=== PATIENT | female | born 1985 | race African-American/Black ===

== ENCOUNTER 2016-09-24 17:57 | Emergency (ER) | payer MEDICAID, OTHER ==
[~2016-09-24] VITALS: Ht 162.6 cm; Wt 87.5 kg
[2016-09-24 19:56] LABS: Basophils # (auto) 0 uL; Basophils % (auto) 0.5 % (0.0-2.0); DEFINITIVE VIEW TRANSMISSION; Eosinophils # (auto) 0.1 uL; Eosinophils % (auto) 0.9 % (0.0-7.0); Hematocrit 36.7 % (36.0-46.0); Hemoglobin 11.6 g/dL (12.2-16.2); Lymphocytes # (auto) 3.5 uL; Lymphocytes % (auto) 36.2 % (10.0-50.0); Mean Corpuscular Hemoglobin 23.1 pg (28.0-32.0); Mean Corpuscular Hgb Conc. 31.5 g/dL (32.0-36.0); Mean Corpuscular Volume 73.4 fL (80.0-100.0); Monocytes % (auto) 10.3 % (0.0-12.0); Neutrophils # (auto) 5.1 uL; Neutrophils % (auto) 52.1 % (37.0-80.0); Platelet Count (auto) 349 10^3/uL (140-450); Red Cell Distribution Width 16.3 % (11.6-16.0); White Blood Cell 9.7 10^3/uL (4.4-10.8)
[2016-09-24 19:59] LABS: Albumin 3.8 g/dL (3.4-5.0); BUN/Creatinine Ratio 13.6; Bilirubin, Total 0.6 mg/dL (0.2-1.0); Calcium 9.2 mg/dL (8.5-10.1); Potassium 3.8 mmol/L (3.5-5.1); Total Protein 7.7 g/dL (6.4-8.2)
[2016-09-24 20:41] LABS: Hypochromia Moderate; Platelet Estimate Adequate
[2016-09-25] MEDS ORDERED: ONDANSETRON ODT 4 MG TAB PO ONE (00:30)
[2016-09-25] MEDS ORDERED: NALBUPHINE HCL 10 MG/1ml INJECTION IM ONE (00:30)
[2016-09-25 02:15] VITALS: BP 137/83
[2016-09-25 02:44] LABS: Urine Bilirubin Negative (Negative); Urine Color Colorless (Yellow); Urine Glucose Normal (Normal); Urine Nitrite Negative (Negative); Urine RBC 2 /hpf (0 - 4); Urine Squamous Epithelial Cell FEW /hpf (<5); Urine Urobilinogen Normal (Negative)
[2016-09-25 02:48] LABS: Urine Blood 2+ /uL (Negative); Urine Ketone 1+ (Negative)
[2016-09-25] MEDS ORDERED: KETOROLAC TROMETH 60MG/2ML VIAL IM ONE (03:15)
[2016-09-25] MEDS ORDERED: NITROFURANTOIN (MONO) 100 mg CAP PO ONE (03:15)
== END 2016-09-25 03:48 | disposition home or self-care (01) ==
LOC: ER 18:03
DX: R51 Headache (principal); N39.0 Urinary tract infection, site not specified; E07.9 Disorder of thyroid, unspecified
CPT/HCPCS: 36415; 70450; 71020; 80053; 81001; 81025; 85025; 85049; 93005; 96372; 99285; J2300; Q0162; J1885

== ENCOUNTER 2018-10-31 19:10 | Emergency (ER) | payer MEDICAID ==
[~2018-10-31] VITALS: Ht 149.9 cm; Wt 59.0 kg
[2018-10-31 20:15] LABS: Basophils # (auto) 0.1 uL; Eosinophils # (auto) 0.1 uL; Neutrophils # (auto) 6.2 uL; White Blood Cell 9.6 10^3/uL (4.4-10.8)
[2018-10-31 20:17] LABS: Basophils % (auto) 1.1 % (0.0-2.0); Eosinophils % (auto) 0.9 % (0.0-7.0); Hematocrit 33.9 % (36.0-46.0); Hemoglobin 10.5 g/dL (12.2-16.2); Lymphocytes # (auto) 2.4 uL; Lymphocytes % (auto) 25.1 % (10.0-50.0); Mean Corpuscular Hemoglobin 20.2 pg (28.0-32.0); Mean Corpuscular Volume 65.4 fL (80.0-100.0); Monocytes # (auto) 0.8 uL; Monocytes % (auto) 7.9 % (0.0-12.0); Nucleated Red Blood Cells % 0.1 %; Platelet Count (auto) 316 10^3/uL (140-450); Red Blood Cells 5.19 10^6/uL (4.0-5.20)
[2018-10-31 20:19] LABS: Red Cell Distribution Width 20.6 % (11.8-14.3)
[2018-10-31 20:25] LABS: Alanine Aminotransferase 16 U/L (13-56); Albumin 3.7 g/dL (3.4-5.0); Anion Gap 7 (5-15); Blood Urea Nitrogen 12 mg/dL (7-18); Calcium 8.3 mg/dL (8.5-10.1); Carbon Dioxide 25 mmol/L (21-32); Chloride 108 mmol/L (98-107); Glucose 91 mg/dL (74-106); Potassium 3.3 mmol/L (3.5-5.1); Sodium 140 mmol/L (136-145)
[2018-10-31 20:30] LABS: Alkaline Phosphatase 68 U/L (45-117); Aspartate Aminotransferase 14 U/L (15-37); BUN/Creatinine Ratio 17.9; Bilirubin, Total 0.3 mg/dL (0.2-1.0); GFR African American 132 mL/min; GFR Non-African American 109 mL/min; Total Protein 7.5 g/dL (6.4-8.2)
[2018-10-31 21:13] LABS: Urine Bacteria FEW /hpf (None Seen); Urine Blood Negative /uL (Negative); Urine Mucus FEW (None Seen); Urine Specific Gravity 1.025 (1.001-1.035); Urine WBC 7 /hpf (0 - 5)
[2018-11-01 00:53] VITALS: BP 123/65
== END 2018-11-01 00:59 | disposition home or self-care (01) ==
LOC: ER 19:18
DX: S43.402A Unspecified sprain of left shoulder joint, initial encounter (principal); S20.212A Contusion of left front wall of thorax, initial encounter; R51 Headache; V49.9XXA Car occupant (driver) (passenger) injured in unspecified traffic accident, initial encounter; Y93.I9 Activity, other involving external motion; Y92.488 Other paved roadways as the place of occurrence of the external cause; Y99.8 Other external cause status
CPT/HCPCS: 36415; 71045; 80053; 81001; 81025; 84484; 85025

== ENCOUNTER 2019-12-08 06:59 | Emergency (ER) | payer MEDICAID ==
[~2019-12-08] VITALS: Ht 162.6 cm; Wt 92.1 kg
[2019-12-08 07:47] LABS: Eosinophils # (auto) 0 10 ^3/uL (0-0.8); Lymphocytes % (auto) 33.7 % (10.0-50.0); Mean Corpuscular Hgb Conc. 31.6 g/dL (32.0-36.0); Monocytes # (auto) 1.1 10 ^3/uL (0-1.3)
[2019-12-08 07:49] LABS: Basophils # (auto) 0.1 10 ^3/uL (0-0.2); Basophils % (auto) 0.5 % (0.0-2.0); Eosinophils % (auto) 0.2 % (0.0-7.0); Hematocrit 36.3 % (36.0-46.0); Hemoglobin 11.5 g/dL (12.2-16.2); Lymphocytes # (auto) 3.7 10 ^3/uL (0.4-5.4); Mean Corpuscular Hemoglobin 23.7 pg (28.0-32.0); Mean Corpuscular Volume 74.9 fL (80.0-100.0); Neutrophils # (auto) 6.1 10 ^3/uL (1.6-8.6); Neutrophils % (auto) 55.6 % (37.0-80.0); Nucleated Red Blood Cells % 0.2 %; Platelet Count (auto) 305 10^3/uL (140-450); Red Blood Cells 4.85 10^6/uL (4.0-5.20); Red Cell Distribution Width 15.5 % (11.8-14.3); White Blood Cell 10.9 10^3/uL (4.4-10.8)
[2019-12-08 08:05] LABS: Albumin 3.7 g/dL (3.4-5.0); Anion Gap 7 (5-15); Blood Urea Nitrogen 9 mg/dL (7-18); Calcium 8.8 mg/dL (8.5-10.1); Carbon Dioxide 26 mmol/L (21-32); Chloride 104 mmol/L (98-107); Glucose 83 mg/dL (74-106); INR 1.13 (0.9-1.15); Partial Thromboplastin Time 27.7 sec (23.64-32.05); Potassium 3.3 mmol/L (3.5-5.1); Sodium 137 mmol/L (136-145)
[2019-12-08 08:11] LABS: Alanine Aminotransferase 22 U/L (13-56); Alkaline Phosphatase 53 U/L (45-117); Aspartate Aminotransferase 15 U/L (15-37); BUN/Creatinine Ratio 11.4; Bilirubin, Total 0.5 mg/dL (0.2-1.0); GFR African American 108 mL/min; GFR Non-African American 90 mL/min; Total Protein 8.3 g/dL (6.4-8.2)
[2019-12-08 09:15] LABS: Urine Bacteria NONE SEEN /hpf (None Seen); Urine Blood 1+ /uL (Negative); Urine Mucus FEW (None Seen); Urine Specific Gravity 1.022 (1.001-1.035); Urine WBC 1 /hpf (0 - 5)
[2019-12-08 09:35] VITALS: BP 121/85
[2019-12-08] MEDS ORDERED: POTASSIUM EFFERVESENT TAB 25 MEQ PO ONE (09:45)
== END 2019-12-08 09:49 | disposition home or self-care (01) ==
LOC: ER 06:59
DX: J40 Bronchitis, not specified as acute or chronic (principal); E87.6 Hypokalemia
CPT/HCPCS: 36415; 71046; 80053; 81001; 83880; 84484; 85025; 85379; 85610; 85730

== ENCOUNTER → 2021-01-29 | Outpatient (CLI) | payer MEDICAID | END | disposition home or self-care (01) | LOC: LAB 10:41 | PROVIDERS: ATTEND Internal Medicine Pulmonary Disease | DX: Z01.812 Encounter for preprocedural laboratory examination (principal); Z20.822 Contact with and (suspected) exposure to COVID-19 | CPT/HCPCS: 36415; 87426 ==

== ENCOUNTER → 2021-01-30 | Outpatient (CLI) | payer MEDICAID ==
[~2021-01-30] MED LIST: ALBUTEROL SULF 2.5 MG/0.5ML(0.5%) NEB SOLN ONE; SODIUM CHLORIDE 0.9 % NEB SOLN 3ML NEB ONE
== END | disposition home or self-care (01) ==
LOC: RT 11:46
PROVIDERS: ATTEND Internal Medicine Pulmonary Disease
DX: J98.8 Other specified respiratory disorders (principal); R06.00 Dyspnea, unspecified
CPT/HCPCS: 94060; 94727; 94729

== ENCOUNTER 2021-02-22 20:40 | Emergency (ER) | payer MEDICAID ==
[~2021-02-22] VITALS: Ht 162.6 cm; Wt 78.0 kg
[2021-02-22 23:23] LABS: Basophils # (auto) 0.1 10 ^3/uL (0-0.2); Eosinophils # (auto) 0.1 10 ^3/uL (0-0.8); Lymphocytes # (auto) 2.5 10 ^3/uL (0.4-5.4); Mean Corpuscular Hemoglobin 22.5 pg (28.0-32.0); Monocytes # (auto) 0.8 10 ^3/uL (0-1.3)
[2021-02-22 23:25] LABS: Basophils % (auto) 0.8 % (0.0-2.0); Eosinophils % (auto) 1.4 % (0.0-7.0); Hematocrit 32.4 % (36.0-46.0); Hemoglobin 10.5 g/dL (12.2-16.2); Lymphocytes % (auto) 29.7 % (10.0-50.0); Mean Corpuscular Hgb Conc. 32.6 g/dL (32.0-36.0); Mean Corpuscular Volume 69.1 fL (80.0-100.0); Monocytes % (auto) 9.3 % (0.0-12.0); Neutrophils # (auto) 4.9 10 ^3/uL (1.6-8.6); Neutrophils % (auto) 58.8 % (37.0-80.0); Platelet Count (auto) 296 10^3/uL (140-450); Red Blood Cells 4.68 10^6/uL (4.0-5.20); Red Cell Distribution Width 18.1 % (11.8-14.3); White Blood Cell 8.3 10^3/uL (4.4-10.8)
[2021-02-22 23:53] LABS: Albumin 3.6 g/dL (3.4-5.0); Anion Gap 6 (5-15); Blood Urea Nitrogen 9 mg/dL (7-18); Calcium 9.4 mg/dL (8.5-10.1); Carbon Dioxide 24 mmol/L (21-32); Chloride 108 mmol/L (98-107); Glucose 89 mg/dL (74-106); Potassium 3.9 mmol/L (3.5-5.1); Sodium 138 mmol/L (136-145)
[2021-02-22 23:58] LABS: Alanine Aminotransferase 21 U/L (13-56); Alkaline Phosphatase 56 U/L (45-117); Aspartate Aminotransferase 14 U/L (15-37); BUN/Creatinine Ratio 12.2; Bilirubin, Total 0.4 mg/dL (0.2-1.0); GFR African American 116 mL/min; GFR Non-African American 96 mL/min; Total Protein 7.7 g/dL (6.4-8.2)
[2021-02-23] MEDS ORDERED: ALBUTEROL SULF 2.5 MG/0.5ML(0.5%) NEB SOLN NEB ONE (07:15)
[2021-02-23] MEDS ORDERED: IPRATROPIUM BROM 0.5 MG/2.5ML INH SOL NEB ONE (07:15)
[2021-02-23 07:55] VITALS: BP 118/60
== END 2021-02-23 08:01 | disposition home or self-care (01) ==
LOC: ER 20:40
DX: E89.0 Postprocedural hypothyroidism (principal); F41.9 Anxiety disorder, unspecified; E78.5 Hyperlipidemia, unspecified; D50.9 Iron deficiency anemia, unspecified; J45.909 Unspecified asthma, uncomplicated; Z98.890 Other specified postprocedural states
CPT/HCPCS: 36415; 71045; 80053; 83880; 84443; 84484; 85025; 93005; 94640; 99285; J7644

== ENCOUNTER 2024-09-12 10:13 | Emergency (ER) | payer MEDICAID ==
[~2024-09-12] VITALS: Ht 162.6 cm; Wt 80.0 kg
[2024-09-12 11:13] VITALS: BP 123/73; PULSE 84; RESP 16; TEMP 98.1; O2SAT 99
[2024-09-12] MEDS ORDERED: LORA-1126 PO (11:38)
[2024-09-12] MEDS ORDERED: AUG875T PO (11:38)
--- NOTE | 2024-09-12 11:38 | ED.PDOC ---
Eye-HPI HPI Comments 39 year old presents for right ear pain x 3 days Associated with muffled hearing No other complaint. Denies having this before denies having this before Denies ear discharge Denies redness of the ear Denies hearing loss Denies persistent ringing in the ear Denies fever chills night sweats unintentional weight loss Denies nausea vomiting severe headache or recent vision changes Chief Complaint: Earache Time Seen by MD: 10:46 Primary Care Provider: jose Reviewed Notes: Nurses Notes, Medications, Allergies Allergies: Coded Allergies: Morphine (Verified Allergy, Unknown, 02/22/21) Home Meds Active Scripts Loratadine (Loratadine) 10 Mg Tab, 10 MG PO DAILY for 10 Days, #10 TAB 0 Refills Prov:CHING INMAN TOOL MAKER 09/12/24 Amoxicillin & Pot Clavulanate (AUGMENTIN TABLET) 875 Mg Tb, 875 MG PO BID for 7 Days, #14 TAB 0 Refills Prov:CHING INMAN TOOL MAKER 09/12/24 Information Source: Patient Mode of Arrival: Ambulatory Past Medical History PAST MEDICAL HISTORY: Asthma, Thyroid Surgical History: , Thyroidectomy WAFER FABRICATION TECHNICIAN History: No Pertinent WAFER FABRICATION TECHNICIAN History Family History Family History: Reviewed,noncontributory to illness Social History Smoker: Non-Smoker Alcohol: Denies ETOH Use Drugs: Denies Drug Use Lives In: Home All Other Systems: Reviewed and Negative (per hpi) Physical Exam General Appearance: No Apparent Distress, Normal HEENT: Normal ENT Inspection, Pharynx Normal, TM Abnormal (R) (TM buldging) Neck: Full Range of Motion, Non-Tender, Normal, Normal Inspection Respiratory: Chest Non-Tender, Lungs Clear, No Accessory Muscle Use, No Respiratory Distress, Normal Breath Sounds Cardiovascular: No Edema, No JVD, No Murmur, No Gallop, Normal Peripheral Pulses, Regular Rate/Rhythm Breast Exam: Deferred Gastrointestinal: No Organomegaly, Non Tender, No Pulsatile Mass, Normal Bowel Sounds, Soft Genitalia: Deferred Pelvic: Deferred Rectal: Deferred Extremities: No calf tenderness, Normal capillary refill, Normal inspection, Normal range of motion, Non-tender, No pedal edema Musculoskeletal : Apperance: Normal Neurologic: Alert, hospice care sales consultant II-XII nml as Tested, No Motor Deficits, Normal Affect, Normal Mood, No Sensory Deficits Cerebellar Function: Normal Reflexes: Normal Skin: Dry, Normal Color, Warm Lymphatic: No Adenopathy Was a procedure done? Was a procedure done?: No EENT DIFF Eye: Other Ear: Foreign Body, Otitis Externa, Otitis Media, Sinusitis X-Ray, Labs, Meds, VS Vital Signs Date Time Temp Pulse Resp B/P (MAP) Pulse Ox O2 Delivery O2 Flow Rate FiO2 09/12/24 11:13 84 16 99 Room Air 09/12/24 11:13 98.1 84 16 123/73 (90) 99 98.1 09/12/24 10:35 98.1 84 16 123/73 (90) 99 X-Ray, Labs, Meds, VS Comment Prescribed p.o. antibiotics for presentation of symptoms Complete course of antibiotic therapy even if symptoms improve or resolve. There should be no leftover antibiotics as this can lead to antibiotic resistant bacteria and even worse infection. Patient verbalized understanding. Patient is stable for discharge at this time. External notes reviewed. Test results and diagnostic imaging interpreted. All diagnostic findings, discharge care, education and instructions provided Follow-up with PCP in 2 to 3 days Patient verbalized understanding and agreed to treatment plan Vital signs stable, afebrile, no acute distress noted Patient ambulatory with strong steady gait Advised to return precautions for any new or worsening symptoms, return to ER immediately for re-evaluation Patient is aware that the purpose of this visit was for an acute medical emergency requiring emergent stabilization. Chronic conditions, including malignancies have not been ruled out. Patient is instructed to follow up with PCP as directed and discharge instructions for continued care and workup. If unable to arrange follow-up, patient is to return to the emergency department for reassessment. Patient (parent or legal guardian if applicable) was given verbal and written discharge instructions and acknowledges understanding. Time of 1ST Reevaluation: 11:00 Reevaluation 1ST: Improved Patient Education/Counseling: Diagnosis, Treatment Family Education/Counseling: Diagnosis, Treatment Departure 1 Departure Time of Disposition: 11:38 Impression: Primary Impression: Otitis media Qualified Codes: H66.001 - Acute suppurative otitis media without spontaneous rupture of ear drum, right ear Disposition: HOME / SELF CARE / HOMELESS Condition: Fair e-Prescriptions Loratadine (Loratadine) 10 Mg Tab 10 MG PO DAILY for 10 Days, #10 TAB 0 Refills Prov: CHING INMAN TOOL MAKER 1/6/25 Amoxicillin & Pot Clavulanate (AUGMENTIN TABLET) 875 Mg Tb 875 MG PO BID for 7 Days, #14 TAB 0 Refills Prov: CHING INMAN NP 09/12/24 Critical Care Note Critical Care Time?: No Stability Stability form required: No Heart Score Heart Score: Heart Score Response (Comments) Value History N/A 0 EKG N/A 0 Age N/A 0 Risk Factors N/A 0 Troponin N/A 0 Total 0 CHING INMAN NP Sep 12, 2024 11:38
== END 2024-09-12 11:43 | disposition home or self-care (01) ==
LOC: ER 10:13
DX: H66.91 Otitis media, unspecified, right ear (principal); J45.909 Unspecified asthma, uncomplicated; Z90.89 Acquired absence of other organs; Z88.5 Allergy status to narcotic agent

== ENCOUNTER 2024-10-25 11:48 | Emergency (ER) | payer MEDICAID ==
[~2024-10-25] VITALS: Ht 162.6 cm; Wt 83.4 kg
[~2024-10-25 11:48] MED LIST changes: -ALBUTEROL SULF 2.5 MG/0.5ML(0.5%) NEB SOLN ONE; +AUG875T PO; +LORA-1126 PO; -SODIUM CHLORIDE 0.9 % NEB SOLN 3ML NEB ONE
[2024-10-25 12:05] VITALS: BP 131/53; PULSE 70; RESP 16; O2SAT 100
--- NOTE | 2024-10-25 13:51 | DVH ---
INDICATION: R/O FX EXAM DATE: 10/25/2024 01:25 PM COMPARISON: None TECHNIQUE: CT of the orbits without intravenous contrast. RADIATION DOSE: CTDIvol: 66.97 mGy, DLP: 810.47 mGy*cm FINDINGS/IMPRESSION: Mucous retention cyst or polyp in the anterior left maxillary sinus measures 1.8 cm. Mild mucosal opa cification of the left ethmoid air cells. Comminuted and displaced fracture of the left medial orbital wall. Mildly displaced fracture of the medial inferior left orbital wall. There is close approximation of the left medial rectus and left inferior rectus muscle to the fractur e site. There are no definite secondary CT signs to suggest entrapment, however, recommend correlatio n with ocular exam.
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
[2024-10-25] MEDS ORDERED: IBUP-1455 PO (15:22)
== END 2024-10-25 15:30 | disposition home or self-care (01) ==
LOC: ER 11:55
DX: S02.832A Fracture of medial orbital wall, left side, initial encounter for closed fracture (principal); H20.9 Unspecified iridocyclitis; E07.9 Disorder of thyroid, unspecified; J45.909 Unspecified asthma, uncomplicated; Z90.89 Acquired absence of other organs; Z88.5 Allergy status to narcotic agent; Y08.89XA Assault by other specified means, initial encounter; Y93.89 Activity, other specified; Y92.89 Other specified places as the place of occurrence of the external cause; Y99.8 Other external cause status
CPT/HCPCS: 70480